=== PATIENT | male | born 1970 | race Caucasian/White ===

== ENCOUNTER 2016-08-17 07:50 | Day surgery (SDC) | payer MEDICARE ==
[~2016-08-17 07:50] MED LIST: AMARYL4 M1 PO; CYCLOBENZAPRINE10 M1 PO; INVOKANA100 MG PO; NAPROSYN500 M1 PO; PRINIVIL10 M1 PO; SIMVASTATIN80 M1 PO; TUMS200 MG PO; [UNRECOGNIZED DRUG - REMARK]
== END 2016-08-17 13:05 ==
LOC: SHSB 07:50 → ORW 09:40 → PACU 11:19 → SHSB 11:42
PROC: 0JB70ZZ Excision of Back Subcutaneous Tissue and Fascia, Open Approach (ICD-10-PCS; principal; 2016-08-17)
DX: D17.1 Benign lipomatous neoplasm of skin and subcutaneous tissue of trunk (principal); E66.9 Obesity, unspecified; E11.9 Type 2 diabetes mellitus without complications; K21.9 Gastro-esophageal reflux disease without esophagitis; F17.210 Nicotine dependence, cigarettes, uncomplicated; Z68.33 Body mass index [BMI] 33.0-33.9, adult; Z79.1 Long term (current) use of non-steroidal anti-inflammatories (NSAID); Z79.84 Long term (current) use of oral hypoglycemic drugs; Z79.899 Other long term (current) drug therapy; Z88.5 Allergy status to narcotic agent; Z91.040 Latex allergy status; Z90.49 Acquired absence of other specified parts of digestive tract; Z98.1 Arthrodesis status; Z98.890 Other specified postprocedural states
CPT/HCPCS: J0690; J7121